=== PATIENT | male | born 1940 | race Caucasian/White ===

== ENCOUNTER 2019-11-11 10:16 | Emergency (ER) | payer MEDICARE ==
[2019-11-11 10:40] VITALS: BP 117/80; PULSE 104
--- NOTE | 2019-11-11 11:31 | EDM.PDOC ---
ED HPI GENERAL MEDICAL PROBLEM - General Chief Complaint: Respiratory Problem Stated Complaint: COUGH Time Seen by Provider: 11/11/19 11:05 Source of Information: Reports: Patient, RN Notes Reviewed History Limitations: Reports: No Limitations - History of Present Illness INITIAL COMMENTS - FREE TEXT/NARRATIVE: Lan presents today for complaints of cough without mucus production for 5 days. He denies fever, chills, nausea, vomiting, diarrhea or other concerns. He reports he does go [place] [facility] and [place] [facility]. He reports history of chronic lung disease. - Related Data Allergies Allergy/AdvReac Type Severity Reaction Status Date / Time No Known Allergies Allergy Verified 11/11/19 10:46 Home Meds: Home Meds Aspirin [Children's Aspirin] 81 mg PO DAILY 08/30/15 [History] Omeprazole 20 mg PO DAILY PRN 08/30/15 [History] cycloSPORINE [Cyclosporine] 75 mg PO BID 08/30/15 [History] predniSONE [Prednisone] 2.5 mg PO DAILY 08/30/15 [History] Apixaban [Eliquis] 5 mg PO DAILY 11/11/19 [History] Cholecalciferol (Vitamin D3) [Vitamin D] 1 tab PO DAILY 11/11/19 [History] Metoprolol Succinate [Toprol XL 100mg] 150 mg PO DAILY 11/11/19 [History] Past Medical History HEENT History: Reports: Impaired Vision Cardiovascular History: Reports: Arrhythmia, High Cholesterol, Hypertension Gastrointestinal History: Reports: GERD Genitourinary History: Reports: Other (See Below) Other Genitourinary History: kidney transplant 06/21/1997 Musculoskeletal History: Reports: Arthritis Neurological History: Reports: Concussion, TIA Hematologic History: Reports: Anticoagulation Therapy Immunologic History: Reports: Other (See Below) Other Immunologic History: taking cyclosporin and prednisone Oncologic (Cancer) History: Reports: Squamous Cell Carcinoma, Other (See Below) Other Oncologic History: skin Dermatologic History: Reports: Other (See Below) Other Dermatologic History: precancerous leisons, skin cancer - Infectious Disease History Infectious Disease History: Reports: Chicken Pox, Measles, Mumps - Past Surgical History Head Surgeries/Procedures: Reports: None HEENT Surgical History: Reports: Adenoidectomy, Cataract Surgery, Tonsillectomy, Other (See Below) Cardiovascular Surgical History: Reports: Other (See Below) GI Surgical History: Reports: Appendectomy, Hernia Repair/Other Neurological Surgical History: Reports: None Musculoskeletal Surgical History: Reports: Hip Replacement, Knee Replacement, Other (See Below) Oncologic Surgical History: Reports: None Dermatological Surgical History: Reports: Plastic Surgical Reconstruction/Repair, Skin Biopsy, Other (See Below) Social & Family History - Tobacco Use Smoking Status *Q: Never Smoker Second Hand Smoke Exposure: No - Caffeine Use Caffeine Use: Reports: Coffee - Alcohol Use Days Per Week of Alcohol Use: 3 Number of Drinks Per Day: 2 Total Drinks Per Week: 6 - Recreational Drug Use Recreational Drug Use: No ED ROS GENERAL - Review of Systems Review Of Systems: See Below Constitutional: Reports: No Symptoms HEENT: Reports: No Symptoms Respiratory: Reports: Cough, Other (no mucus production, patient reports wheezing at night. ) Cardiovascular: Reports: No Symptoms Endocrine: Reports: No Symptoms GI/Abdominal: Reports: No Symptoms : Reports: No Symptoms Musculoskeletal: Reports: No Symptoms Skin: Reports: No Symptoms Neurological: Reports: No Symptoms Psychiatric: Reports: No Symptoms Hematologic/Lymphatic: Reports: No Symptoms Immunologic: Reports: No Symptoms ED EXAM, GENERAL - Physical Exam Exam: See Below Exam Limited By: No Limitations General Appearance: Alert, WD/WN, No Apparent Distress Eye Exam: Bilateral Eye: Normal Inspection, PERRL Ears: Normal External Exam, Normal Canal (right ear. Patient is missing left ear and ear canal. ) Nose: Normal Inspection, Normal Mucosa, No Blood Throat/Mouth: Normal Inspection, Normal Lips, Normal Gums, Normal Oropharynx, Normal Voice, No Airway Compromise Head: Atraumatic, Normocephalic Neck: Normal Inspection, Supple, Non-Tender, Full Range of Motion. No: Lymphadenopathy (R), Lymphadenopathy (L) Respiratory/Chest: No Respiratory Distress, Lungs Clear, No Accessory Muscle Use, Chest Non-Tender, Decreased Breath Sounds, Rales (fine faint rales to LLL). No: Crackles, Rhonchi, Wheezing, Stridor, Pleural Rub, Retractions, Splinting, Prolonged Expiration Cardiovascular: Normal Peripheral Pulses, Regular Rate, Rhythm, No Edema, No Gallop, No Murmur, No Rub Peripheral Pulses: 2+: Radial (L), Radial (R), Dorsalis Pedis (L), Dorsalis Pedis (R) GI/Abdominal: Normal Bowel Sounds, Soft, Non-Tender, No Organomegaly, No Distention, No Mass. No: Guarding, Rigid, Rebound, Tender Back Exam: Normal Inspection, Full Range of Motion. No: CVA Tenderness (R), CVA Tenderness (L), Muscle Spasm, Paraspinal Tenderness, Vertebral Tenderness Extremities: No Pedal Edema, Normal Capillary Refill, Other (chronic skin irritation, tenderness to right lateral calf, no erythema, fluctuance or sign of infection. ). No: Vamsi's Sign, Pallor, Redness Neurological: Alert, Oriented, Normal Cognition, Normal Gait, Normal Reflexes, No Motor/Sensory Deficits Psychiatric: Normal Affect, Normal Mood Skin Exam: Warm, Dry, Rash (chronic rash - patient reports no worsening.). No: Diaphoretic, Ecchymosis, Erythema, Increased Warmth Lymphatic: No Adenopathy Course - Vital Signs Last Recorded V/S: Last Vital Signs Temp 36.4 C 11/11/19 11:00 Pulse 104 H 11/11/19 11:00 Resp 14 11/11/19 11:00 BP 117/80 11/11/19 11:00 Pulse Ox 96 11/11/19 11:00 - Orders/Labs/Meds Orders: Active Orders 24 hr Category Date Time Status Chest 2V [CR] Stat Exams 11/11/19 11:30 Taken CORONAVIRUS COVID-19, HARPAL Routine Lab 11/11/19 12:40 Received CULTURE STREP A CONFIRMATION [RM] Stat Lab 11/11/19 11:35 Results STREP SCRN A RAPID W CULT CONF [RM] Stat Lab 11/11/19 11:35 Results Isolation [COMM] Routine Oth 11/11/19 11:30 Ordered Labs: Laboratory Tests 11/11/19 11/11/19 Range/Units 11:41 11:41 WBC 7.5 (4.5-11.0) K/uL RBC 4.33 (4.30-5.90) M/uL Hgb 13.4 (12.0-15.0) g/dL Hct 42.6 (40.0-54.0) % MCV 98 (80-98) fL MCH 31 (27-31) pg MCHC 32 (32-36) % Plt Count 235 (150-400) K/uL Neut % (Auto) 76 H (36-66) % Lymph % (Auto) 14 L (24-44) % Petroleum % (Auto) 9 H (2-6) % Eos % (Auto) 1 L (2-4) % Baso % (Auto) 1 (0-1) % Sodium 138 L (140-148) mmol/L Potassium 4.5 (3.6-5.2) mmol/L Chloride 102 (100-108) mmol/L Carbon Dioxide 30 (21-32) mmol/L Anion Gap 10.5 (5.0-14.0) mmol/L BUN 28 H (7-18) mg/dL Creatinine 1.9 H (0.8-1.3) mg/dL Est Cr Clr Drug Dosing 32.48 mL/min Estimated GFR (MDRD) 34 L (>60) Glucose 85 (74-106) mg/dL Calcium 8.7 (8.5-10.1) mg/dL - Radiology Interpretation Free Text/Narrative:: Discussed X-ray and lab work with patient. CKD Chest x-ray shows no acute findings, scarring noted, possible LLL small infiltrate Patient will take doxycyline 100mg PO BID for bronchitis, follow up with primary. Return for any worsening, issues or concerns. Departure - Departure Time of Disposition: 12:20 Disposition: Home, Self-Care 01 Condition: Good Clinical Impression: Bronchitis, Chronic kidney disease (CKD) - Discharge Information *PRESCRIPTION DRUG MONITORING PROGRAM REVIEWED*: Not Applicable *COPY OF PRESCRIPTION DRUG MONITORING REPORT IN PATIENT CHRIS: Not Applicable Instructions: Acute Bronchitis, Adult, [id number] Referrals: PCP,None [Primary Care Provider] - Forms: ED Department Discharge Additional Instructions: You have been evaluated and treated for bronchitis and chronic renal disease. Push water to stay hydrated. Tylenol as needed for fever/pain. Take doxycycline 100mg by mouth twice per day for bronchitis for 10 days. Follow up with primary in 3 to 7 days for recheck. Return to emergency room for any worsening, issues or concerns. Sepsis Event Note (ED) - Evaluation Sepsis Screening Result: No Definite Risk - My Orders Last 24 Hours: My Active Orders 11/11/19 11:30 Chest 2V [CR] Stat Isolation [COMM] Routine 11/11/19 11:35 CULTURE STREP A CONFIRMATION [RM] Stat STREP SCRN A RAPID W CULT CONF [RM] Stat 11/11/19 12:40 CORONAVIRUS COVID-19, HARPAL Routine - Assessment/Plan Last 24 Hours: My Active Orders 11/11/19 11:30 Chest 2V [CR] Stat Isolation [COMM] Routine 11/11/19 11:35 CULTURE STREP A CONFIRMATION [RM] Stat STREP SCRN A RAPID W CULT CONF [RM] Stat 11/11/19 12:40 CORONAVIRUS COVID-19, HARPAL Routine Assessment:: Bronchitis, Chronic kidney disease (CKD) Plan: Patient evaluated and treated for bronchitis and chronic renal disease. Push water to stay hydrated. Tylenol as needed for fever/pain. Take doxycycline 100mg by mouth twice per day for bronchitis for 10 days. Follow up with primary in 3 to 7 days for recheck. Return to emergency room for any worsening, issues or concerns. Self quarantine until COVID19 test returns.
--- NOTE | 2019-11-13 09:40 | CR ---
CHEST: 2 view CLINICAL HISTORY:Cough COMPARISON:None FINDINGS: The heart is enlarged. Pulmonary vascular is mildly cephalized. There are atherosclerotic changes in the aorta. There is diffuse interstitial prominence. Much of this may be chronic. There is superimposed infiltrate in the right upper and right lower lobes. Impression: Right upper and right lower lobe infiltrates. Follow-up recommended until clear Diffuse interstitial prominence is felt to be chronic Cardiomegaly
== END 2019-11-11 12:43 | disposition home or self-care (01) ==
LOC: JP.ED 10:16
DX: J40 Bronchitis, not specified as acute or chronic (principal); I12.9 Hypertensive chronic kidney disease with stage 1 through stage 4 chronic kidney disease, or unspecified chronic kidney disease; N18.9 Chronic kidney disease, unspecified; R21 Rash and other nonspecific skin eruption; K21.9 Gastro-esophageal reflux disease without esophagitis; Z90.49 Acquired absence of other specified parts of digestive tract; Z79.82 Long term (current) use of aspirin; Z79.899 Other long term (current) drug therapy
CPT/HCPCS: 36415; 71046; 80048; 85025; 87081; 87804; 87880; 99283; U0002

== ENCOUNTER 2021-11-20 02:50 | Emergency (ER) | payer MEDICARE ==
[2021-11-20 03:12] VITALS: BP 105/64; PULSE 74
[2021-11-20 04:12] LABS: ESTIMATED GFR 17 mL/min (>60)
== END 2021-11-20 05:01 | disposition home or self-care (01) ==
LOC: JP.ED 02:50
DX: S32.020A Wedge compression fracture of second lumbar vertebra, initial encounter for closed fracture (principal); S32.030A Wedge compression fracture of third lumbar vertebra, initial encounter for closed fracture; I13.0 Hypertensive heart and chronic kidney disease with heart failure and stage 1 through stage 4 chronic kidney disease, or unspecified chronic kidney disease; N18.4 Chronic kidney disease, stage 4 (severe); I50.43 Acute on chronic combined systolic (congestive) and diastolic (congestive) heart failure; E78.00 Pure hypercholesterolemia, unspecified; M19.90 Unspecified osteoarthritis, unspecified site; Z20.822 Contact with and (suspected) exposure to COVID-19; Z79.899 Other long term (current) drug therapy
CPT/HCPCS: 36415; 72100; 80053; 83880; 85025; 86140; 93005; 99284; U0002